=== PATIENT | female | born 1980 | race Two or more races ===

== ENCOUNTER 2019-04-18 16:09 | Emergency (ER) | payer MEDICAID ==
[~2019-04-18] VITALS: Ht 157.5 cm; Wt 100.7 kg
[~2019-04-18 16:09] MED LIST: CEFP50SU PO
[2019-04-18 16:11] VITALS: BP 122/71; PULSE 60; RESP 22; Ht 157.5 cm; Wt 100.7 kg
[2019-04-18] MEDS ORDERED: ONDANSETRON (ODT) 4 MG TAB ODT STA (16:20)
[2019-04-18] MEDS ORDERED: MECLIZINE 12.5 MG TAB PO ONE (16:30)
[2019-04-18] MEDS ORDERED: MECL12.574 PO (17:03)
[2019-04-18] MEDS ORDERED: ONDA4TAB14 PO (17:03)
--- NOTE | 2019-04-18 17:04 | ERD ---
ER Documentation Chief Complaint Chief Complaint Dizziness worse with eyes open, headache nausea/vomiting since 1200 HPI Patient is a 38-year-old female with no medical problems who presents with dizziness. She also has nausea and vomiting. She felt chills but has no fevers. The symptoms started today around 12:00. They have been constant. She has had no treatment as of yet. She went to a urgent care clinic and was sent to the ER for further evaluation. She has had no treatment as of yet. She feels the room is spinning. She denies pain. Upon review of old medical records this is the patient's second visit to the ER since 2014. She does not currently have a primary doctor. ROS All systems reviewed and are negative except as per history of present illness. Medications Home Meds Active Scripts Ondansetron (Ondansetron Odt) 4 Mg Tab.rapdis, 4 MG PO Q6H PRN for NAUSEA AND/OR VOMITING, #10 TAB Prov:MALATHI QUEVEDO MD 04/18/19 Meclizine Hcl* (Antivert*) 12.5 Mg Tab, 25 MG PO Q6H PRN for DIZZINESS, #20 TAB Prov:MALATHI QUEVEDO MD 04/18/19 Cefpodoxime Proxetil* (Vantin*) 10 Mg/Ml Susp, 100 MG PO Q12, #10 ML Prov:LAILA BRANCH 07/17/15 Allergies Allergies: Coded Allergies: No Known Allergy (Unverified , 07/15/15) PMhx/Soc Medical and Surgical Hx: pt denies Medical Hx, pt denies Surgical Hx History of Surgery: No Anesthesia Reaction: No Hx Neurological Disorder: No Hx Respiratory Disorders: No Hx Cardiac Disorders: No Hx Psychiatric Problems: No Hx Miscellaneous Medical Probl: No Hx Alcohol Use: No Hx Substance Use: No Hx Tobacco Use: No Smoking Status: Never smoker FmHx Family History: diabetes Physical Exam Vitals Vital Signs Date Temp Pulse Resp B/P (MAP) Pulse Ox O2 O2 Flow FiO2 Time Delivery Rate 04/18/19 97.8 60 22 122/71 99 16:11 (88) Physical Exam Const: Moderate distress Head: Atraumatic Eyes: Normal Conjunctiva ENT: Normal External Ears, Nose and Mouth. Neck: Full range of motion. No meningismus. Resp: Clear to auscultation bilaterally Cardio: Regular rate and rhythm, no murmurs Abd: Soft, non tender, non distended. Normal bowel sounds Skin: No petechiae or rashes Back: No midline or flank tenderness Ext: No cyanosis, or edema Neur: Awake and alert, cranial nerves II through XII are intact, strength is 5 out of 5 in all 4 extremities, no slurred speech, no pronator drift Psych: Normal Mood and Affect Results 24 hrs Laboratory Tests Test 04/18/19 16:37 04/18/19 16:40 Bedside Glucose 135 mg/dL POC Beta HCG, Qualitative NEGATIVE Current Medications Medications Dose Sig/Keli Start Time Status Last (Trade) Ordered Route PRN Stop Time Admin Dose Reason Admin Meclizine 25 mg ONCE ONCE 04/18/19 DC 04/18/19 HCl PO 16:30 16:27 (Antivert) 04/18/19 16:31 Ondansetron 4 mg ONCE STAT 04/18/19 DC 04/18/19 HCl (Zofran ODT 16:20 16:27 Odt) 04/18/19 16:21 Procedures/MDM EKG read by me: Rate/Rhythm: Sinus bradycardia at a rate of 56 Intervals: Normal Impression: Bradycardia without ischemia test is negative. Accu-Chek is normal. Patient is a 38-year-old female with no medical problems who presents with dizziness. Her symptoms are consistent with vertigo. I see no signs of stroke at this time. I doubt intracranial hemorrhage, mass, or stroke. I believe the risk of doing a CT scan of the brain outweigh the benefits. The patient was given Zofran and meclizine and feels better. I doubt acute ischemia or . The patient need to follow-up closely with the local clinics within 24 to 48 hours that she does not currently have a primary doctor. She can return sooner for any worsening symptoms. Departure Diagnosis: Primary Impression: Vertigo Condition: Fair Patient Instructions: Vertigo, Unspecified [facility] Usted se leung hecho un examen mdico de control que le indica que no est en cynthia condicin que requiera tratamiento urgente en el Departamento de Emergencia. Un estudio ms profundo y el tratamiento de spivey condicin pueden esperar sin ningn riesgo hasta que usted sea atendida/o en el consultorio de spivey mdico o cynthia clnica. Es responsabilidad suya arreglar cynthia maxine para el seguimiento del blanche. MANEJO DE CONDICIONES NO URGENTES EN EL FUTURO 1) Si usted tiene un mdico de atencin primaria: Usted debera llamar a spivey mdico de atencin primaria antes de venir al departamento de emergencia. Despus de las horas de consultorio, spivey doctor o spivey asociado/a est disponible por telfono. El mdico o enfermero de jessica en el servicio telefnico puede asesorarle por gray medio para atender el problema, o blanche contrario se puede programar cynthia maxine. 2) Si usted no tiene un mdico de atencin primaria: Llame al mdico o clnica de referencia que aparece abajo debby las horas de consultorio para hacer cynthia maxine para que le vean. CLINICAS: [place] [id number] [phone] [facility] [phone] [facility]. [facility] [phone] [address] [facility] [place] [id number] [phone] [facility]. [place] [phone] [facility]. [phone] [address] Additional Instructions: Llame al doctor MAANA y ned cynthia MAXINE PARA DENTRO DE 1-2 ESPINAL.Dgale a la secretaria que nosotros le instruimos hacer esta maxine.Avise o llame si spivey condicin se empeora antes de la maxine. Regresa aqui si peor o no mejor. MALATHI QUEVEDO MD Apr 18, 2019 17:04
== END 2019-04-18 17:23 | disposition home or self-care (01) ==
LOC: E/R 16:09
DX: R42 Dizziness and giddiness (principal); R11.2 Nausea with vomiting, unspecified
CPT/HCPCS: 81025; 82962; 93005; Z7610